=== PATIENT | male | born 1955 | race Caucasian/White ===

== ENCOUNTER 2022-01-18 16:52 | Inpatient (IN) ==
[2022-01-18] MEDS ORDERED: Naloxone 0.4 MG/ML INJ IVP PRN (23:25)
[2022-01-18] MEDS ORDERED: Ondansetron 4 MG/2 ML VIAL IVP PRN (23:25)
[2022-01-18] MEDS ORDERED: Melatonin 3 MG TABLET PO PRN (23:25)
[2022-01-18] MEDS: Gabapentin 300 MG CAPSULE PO SCH (23:55)
[2022-01-19] MEDS ORDERED: predniSONE 20 MG TABLET PO ONE (00:14)
[2022-01-19] MEDS ORDERED: Ketorolac 30 MG/ML VIAL IVP ONE (00:15)
[2022-01-19] MEDS ORDERED: Thiamine (B-1) 100 MG in 0.9 % Sodium Chloride 50 ML IVPB ONE (01:00)
[2022-01-19 01:18] LABS: Basophils % 0.3 %; Eosinophils # 0.2 K/mcL (0.0-0.6); Eosinophils % 1.6 %; Hematocrit 49.1 % (37.5-50.1); Hemoglobin 16.8 g/dL (12.9-16.9); Immature Granulocytes % 0.5 % (0-4); Lymphocytes % 20.2 %; Mean Corpuscular HGB Conc 34.2 g/dL (31.6-35.5); Mean Corpuscular Hemoglobin 30.5 pg (28.0-33.3); Mean Corpuscular Volume 89.1 fL (83.0-100.0); Mean Platelet Volume 9.7 fL (9.4-12.4); Monocytes # 0.9 K/mcL (0.0-1.3); Neutrophils # 10.6 K/mcL (1.6-8.9); Platelet Count 251 K/mcL (140-400); Red Blood Count 5.51 M/mcL (4.19-5.50); Red Cell Distribution Width 12.9 % (11.5-14.5); Segmented Neutrophils % 71.4 %; White Blood Count 14.8 K/mcL (4.3-11.1)
[2022-01-19 01:25] LABS: Prothrombin Time 11.5 Seconds (9.4-12.1)
[2022-01-19 01:27] LABS: Activated Partial Thrombo Time 32.5 Seconds (26.0-36.0)
[2022-01-19 01:38] LABS: Alanine Aminotransferase 48 Units/L (7-52); Albumin/Globulin Ratio 1.6 (1.1-2.2); Alkaline Phosphatase 45 Units/L (34-104); Aspartate Amino Transferase 26 Units/L (13-39); BUN/Creatinine Ratio 21 (6-26); Bilirubin,Total 0.6 mg/dL (0.3-1.0); Blood Urea Nitrogen 18 mg/dL (8-23); Calcium 9.1 mg/dL (8.6-10.3); Carbon Dioxide 27 mEq/L (23-29); Chloride 103 mEq/L (98-107); Globulin 2.5 g/dL (2.4-3.5); Glucose 124 mg/dL (70-105); Osmolality,Calculated 289 (280-300); Phosphorous 3.8 mg/dL (2.7-4.5); Potassium 3.7 mEq/L (3.5-5.1); Sodium 138 mEq/L (136-145); Total Protein 6.5 g/dL (6.4-8.9); eGFR For African Americans > 60 (> 60); eGFR For Non-African Americans > 60 (> 60)
[2022-01-19 02:02] LABS: Estimated Average Glucose 126 mg/dl
[2022-01-19] MEDS ORDERED: 0.9 % Sodium Chloride 1,000 ML IVC SCH (03:00)
[2022-01-19] MEDS ORDERED: D5% in Water 1,000 ML IVC PRN (03:10)
[2022-01-19] MEDS ORDERED: *HR* Dextrose 50 % in Water (Syg) 50 ML SYRINGE IVP PRN (03:10)
[2022-01-19] MEDS ORDERED: Dextrose 4 GM Chewable Tablets PO PRN ×2 (03:10)
[2022-01-19 05:49] LABS: Bilirubin,Urine Negative (Negative); Blood,Urine Negative (Negative); Clarity,Urine Clear (Clear); Color,Urine Colorless (Yellow); Glucose,Urine (UA) Normal (Normal); Ketones,Urine Negative (Negative); Leukocyte Esterase,Urine Negative (Negative); Nitrite,Urine Negative (Negative); Protein,Urine Negative (Neg-Trace); Specific Gravity,Urine 1.008 (1.010-1.025); Urobilinogen,Urine Normal (Normal)
[2022-01-19] MEDS: Aspirin 81 MG TAB.CHEW PO SCH (08:48)
[2022-01-19] MEDS: amLODIPine 5 MG TABLET PO SCH (08:48)
[2022-01-19] MEDS: lisinopriL 20 MG TABLET PO SCH (08:48)
[2022-01-19] MEDS: Multivit/Ca/Min/Fe/FA 1 TAB TABLET PO SCH (08:48)
[2022-01-19] MEDS: Gabapentin 300 MG CAPSULE PO SCH ×3 (08:48→20:24)
[2022-01-19 12:35] LABS: Adenovirus Not Detected (Not Detect); Bordetella Pertussis Not Detected (Not Detect); Chlamydophila pneumoniae Not Detected (Not Detect); Coronavirus 229E Not Detected (Not Detect); Coronavirus HKU1 Not Detected (Not Detect); Coronavirus NL63 Not Detected (Not Detect); Coronavirus OC43 Not Detected (Not Detect); Human Metapneumovirus Not Detected (Not Detect); Human Rhinovirus/Enterovirus Not Detected (Not Detect); Influenza A Subtype 2009 H1 Not Detected (Not Detect); Influenza B Not Detected (Not Detect); Mycoplasma pneumoniae Not Detected (Not Detect); Parainfluenza Virus 1 Not Detected (Not Detect); Parainfluenza Virus 2 Not Detected (Not Detect); Parainfluenza Virus 3 Not Detected (Not Detect); Parainfluenza Virus 4 Not Detected (Not Detect); Respiratory Syncytial Virus Not Detected (Not Detect); SARS-CoV-2 Not Detected (Not Detect)
[2022-01-19] MEDS ORDERED: IVIG (wt based) Privigen 5 GM/50 ML INFUS..BTL IVC ONE (14:53)
[2022-01-19] MEDS ORDERED: Immune Glob, Gamma (Gammagard) 10 GM/100 ML INFUS..BTL IVC ONE (15:45)
[2022-01-19] MEDS ORDERED: Acetaminophen 650 MG RECTAL SUPP RC ONE (15:45)
[2022-01-19] MEDS ORDERED: Immune Glob, Gamma (Gammagard) 20 GM/200 ML INFUS..BTL IVC ONE (15:45)
[2022-01-19 16:43] LABS: Red Blood Cell,CSF < 2000 RBC/mcL
[2022-01-19 16:45] LABS: Appearance,CSF Clear (Clear)
[2022-01-19 17:44] LABS: Glucose,CSF 77 mg/dL (40-70); Total Protein,CSF 48 mg/dL (15-45)
[2022-01-19] MEDS: Acetaminophen 325 MG TABLET PO PRN (18:00)
[2022-01-20 01:58] LABS: Basophils % 0.3 %; Eosinophils # 0.2 K/mcL (0.0-0.6); Eosinophils % 1.7 %; Hematocrit 50.7 % (37.5-50.1); Hemoglobin 17.1 g/dL (12.9-16.9); Immature Granulocytes % 0.8 % (0-4); Lymphocytes # 1.9 K/mcL (0.6-4.6); Lymphocytes % 14.7 %; Mean Corpuscular HGB Conc 33.7 g/dL (31.6-35.5); Mean Corpuscular Hemoglobin 30.5 pg (28.0-33.3); Mean Corpuscular Volume 90.5 fL (83.0-100.0); Mean Platelet Volume 9.7 fL (9.4-12.4); Monocytes # 0.7 K/mcL (0.0-1.3); Monocytes % 5.2 %; Platelet Count 225 K/mcL (140-400); Red Cell Distribution Width 13.2 % (11.5-14.5); Segmented Neutrophils % 77.3 %; White Blood Count 12.9 K/mcL (4.3-11.1)
[2022-01-20 02:17] LABS: BUN/Creatinine Ratio 19 (6-26); Blood Urea Nitrogen 15 mg/dL (8-23); Calcium 8.8 mg/dL (8.6-10.3); Carbon Dioxide 29 mEq/L (23-29); Chloride 105 mEq/L (98-107); Glucose 93 mg/dL (70-105); Magnesium 2.1 mg/dL (1.6-2.6); Osmolality,Calculated 289 (280-300); Potassium 4.1 mEq/L (3.5-5.1); Sodium 139 mEq/L (136-145); eGFR For African Americans > 60 (> 60); eGFR For Non-African Americans > 60 (> 60)
[2022-01-20] MEDS ORDERED: *HR* Enoxaparin 40 MG/0.4 ML SYRINGE SQ SCH (06:00)
[2022-01-20] MEDS: lisinopriL 20 MG TABLET PO SCH (07:41)
[2022-01-20] MEDS: Multivit/Ca/Min/Fe/FA 1 TAB TABLET PO SCH (07:41)
[2022-01-20] MEDS: Gabapentin 300 MG CAPSULE PO SCH ×3 (07:41→19:16)
[2022-01-20] MEDS: amLODIPine 5 MG TABLET PO SCH (07:41)
[2022-01-20] MEDS: Aspirin 81 MG TAB.CHEW PO SCH (07:42)
[2022-01-20] MEDS ORDERED: Immune Glob, Gamma (Gammagard) 20 GM/200 ML INFUS..BTL IVC ONE (16:00)
[2022-01-20] MEDS: Immune Glob, Gamma (Gammagard) 10 GM/100 ML INFUS..BTL IVC ONE ×2 (19:16→21:20)
[2022-01-21 06:24] LABS: Basophils % 0.4 %; Eosinophils # 0.4 K/mcL (0.0-0.6); Eosinophils % 5.5 %; Hemoglobin 16.6 g/dL (12.9-16.9); Immature Granulocytes % 0.4 % (0-4); Lymphocytes # 1.8 K/mcL (0.6-4.6); Lymphocytes % 24.1 %; Mean Corpuscular HGB Conc 34.6 g/dL (31.6-35.5); Mean Corpuscular Hemoglobin 30.9 pg (28.0-33.3); Mean Corpuscular Volume 89.4 fL (83.0-100.0); Mean Platelet Volume 9.4 fL (9.4-12.4); Monocytes # 0.5 K/mcL (0.0-1.3); Monocytes % 6.9 %; Neutrophils # 4.7 K/mcL (1.6-8.9); Platelet Count 204 K/mcL (140-400); Red Blood Count 5.37 M/mcL (4.19-5.50); Segmented Neutrophils % 62.7 %; White Blood Count 7.4 K/mcL (4.3-11.1)
[2022-01-21] MEDS: Aspirin 81 MG TAB.CHEW PO SCH (08:42)
[2022-01-21] MEDS: amLODIPine 5 MG TABLET PO SCH (08:42)
[2022-01-21] MEDS: lisinopriL 20 MG TABLET PO SCH (08:42)
[2022-01-21] MEDS: Gabapentin 300 MG CAPSULE PO SCH ×3 (08:42→19:24)
[2022-01-21] MEDS: Multivit/Ca/Min/Fe/FA 1 TAB TABLET PO SCH (08:42)
[2022-01-21] MEDS ORDERED: Immune Glob, Gamma (Gammagard) 10 GM/100 ML INFUS..BTL IVC ONE (16:00)
[2022-01-21] MEDS ORDERED: Immune Glob, Gamma (Gammagard) 20 GM/200 ML INFUS..BTL IVC ONE (16:00)
[2022-01-22] MEDS: *HR* Enoxaparin 40 MG/0.4 ML SYRINGE SQ SCH (04:49)
[2022-01-22] MEDS: Aspirin 81 MG TAB.CHEW PO SCH (08:06)
[2022-01-22] MEDS: amLODIPine 5 MG TABLET PO SCH (08:06)
[2022-01-22] MEDS: carvediloL 6.25 MG TABLET PO SCH ×2 (08:06→17:46)
[2022-01-22] MEDS: Multivit/Ca/Min/Fe/FA 1 TAB TABLET PO SCH (08:06)
[2022-01-22] MEDS: lisinopriL 20 MG TABLET PO SCH (08:06)
[2022-01-22] MEDS: Gabapentin 300 MG CAPSULE PO SCH ×3 (08:07→20:24)
[2022-01-22] MEDS ORDERED: *HR* Labetalol 20 MG/4 ML SYRINGE IVP PRN (14:02)
[2022-01-22] MEDS ORDERED: Immune Glob, Gamma (Gammagard) 20 GM/200 ML INFUS..BTL IVC ONE (16:00)
[2022-01-22] MEDS ORDERED: Immune Glob, Gamma (Gammagard) 10 GM/100 ML INFUS..BTL IVC ONE (16:00)
[2022-01-23] MEDS: Acetaminophen 325 MG TABLET PO PRN (03:14)
[2022-01-23] MEDS: *HR* Enoxaparin 40 MG/0.4 ML SYRINGE SQ SCH (05:02)
[2022-01-23] MEDS: Aspirin 81 MG TAB.CHEW PO SCH (08:19)
[2022-01-23] MEDS: carvediloL 6.25 MG TABLET PO SCH (08:19)
[2022-01-23] MEDS: amLODIPine 5 MG TABLET PO SCH (08:19)
[2022-01-23] MEDS: lisinopriL 20 MG TABLET PO SCH (08:20)
[2022-01-23] MEDS: Gabapentin 300 MG CAPSULE PO SCH ×2 (08:20→14:39)
[2022-01-23] MEDS: Multivit/Ca/Min/Fe/FA 1 TAB TABLET PO SCH (08:20)
[2022-01-23 15:39] VITALS: BP 137/74; PULSE 67; TEMP 98; O2SAT 94
[2022-01-23] MEDS ORDERED: Immune Glob, Gamma (Gammagard) 20 GM/200 ML INFUS..BTL IVC ONE (16:00)
[2022-01-23] MEDS ORDERED: Immune Glob, Gamma (Gammagard) 10 GM/100 ML INFUS..BTL IVC ONE (16:00)
== END 2022-01-23 19:05 | disposition home or self-care (01) | DRG 96 ==
LOC: 3ANU → SUATTDRO 22:44
PROVIDERS: ADMIT Internal Medicine; ATTEND Internal Medicine